=== PATIENT | male | born 1980 | race Caucasian/White ===

== ENCOUNTER 2016-12-28 16:37 | Emergency (ER) | payer OTHER ==
[~2016-12-28] VITALS: Ht 172.7 cm; Wt 104.3 kg
--- NOTE | 2016-12-28 17:10 | NUR ---
DR BARKER AT THE BEDSIDE FOR EVAL AND EXAM.
--- NOTE | 2016-12-28 17:21 | NUR ---
Patient discharged to home in stable conditon. Written and verbal after care instructions given. Patient verbalizes understanding of instructions.
[2016-12-28 17:26] VITALS: BP 133/76
== END 2016-12-28 17:27 | disposition home or self-care (01) ==
LOC: ER 16:42
DX: J40 Bronchitis, not specified as acute or chronic (principal); J45.909 Unspecified asthma, uncomplicated; Z88.8 Allergy status to other drugs, medicaments and biological substances
CPT/HCPCS: A4663